=== PATIENT | male | born 1990 | race Hispanic/Latino ===

== ENCOUNTER 2018-04-10 01:04 | Emergency (ER) | payer BC ==
[~2018-04-10] VITALS: Ht 175.3 cm; Wt 170.6 kg
[2018-04-10] MEDS ORDERED: CEFTRIAXONE SOD 1 GM VIAL IM ONE (01:30)
== END 2018-04-10 01:45 | disposition home or self-care (01) ==
LOC: FSED 01:04
DX: R50.9 Fever, unspecified (principal); R05 Cough; J03.00 Acute streptococcal tonsillitis, unspecified
CPT/HCPCS: 99282; J0696